=== PATIENT | female | born 1970 | race Asian ===

== ENCOUNTER 2016-07-18 02:27 | Outpatient (CLI) | payer OTHER ==
[2016-07-18] MEDS ORDERED: LEXAPRO10 MG PO (02:47)
== END 2016-07-18 02:41 | disposition short-term general hospital (02) ==
LOC: AMB 02:27
DX: R41.82 Altered mental status, unspecified (principal); F22 Delusional disorders
CPT/HCPCS: A0425; A0427

== ENCOUNTER 2016-07-18 02:45 | Emergency (ER) | payer OTHER ==
[~2016-07-18] VITALS: Ht 152.4 cm; Wt 49.9 kg
[2016-07-18] MEDS ORDERED: LEXAPRO10 MG PO (02:47)
[2016-07-18 03:23] LABS: PLATELET COUNT 267 K/uL (152-353)
[2016-07-18 03:34] LABS: POTASSIUM 2.9 mmol/L (3.6-5.2); SODIUM 135 mmol/L (136-145)
[2016-07-18 04:35] VITALS: BP 128/87; TEMP 99.8
== END 2016-07-18 04:35 | disposition home or self-care (01) ==
LOC: ED 02:45
DX: F20.89 Other schizophrenia (principal)
CPT/HCPCS: 36415; 80053; 80320; 80329; 85027; 99283

== ENCOUNTER 2016-07-19 17:43 | Emergency (ER) | payer OTHER ==
[~2016-07-19] VITALS: Ht 167.6 cm; Wt 56.2 kg
[~2016-07-19 17:43] MED LIST: LEXAPRO10 MG PO
[2016-07-19 18:29] LABS: PLATELET COUNT 297 K/uL (152-353)
[2016-07-19 19:02] LABS: POTASSIUM 3.4 mmol/L (3.6-5.2)
[2016-07-20 05:36] VITALS: TEMP 98.7
[2016-07-20 19:23] VITALS: BP 130/82
== END 2016-07-20 19:24 | disposition other institution (70) ==
LOC: ED 17:43
DX: R44.0 Auditory hallucinations (principal); F20.89 Other schizophrenia
CPT/HCPCS: 36415; 80053; 80307; 80320; 80329; 81000; 81025; 85027; 93005; 99285; G0479

== ENCOUNTER 2017-03-07 19:22 | Emergency (ER) | payer OTHER ==
[~2017-03-07] VITALS: Ht 152.4 cm; Wt 66.2 kg
[2017-03-07 20:08] VITALS: BP 143/87; TEMP 97.8
== END 2017-03-07 21:18 | disposition home or self-care (01) ==
LOC: ED 19:22
DX: M79.1 Myalgia (principal); M79.605 Pain in left leg
CPT/HCPCS: 99281

== ENCOUNTER 2017-03-09 09:56 | Outpatient (CLI) | payer OTHER | END 2017-03-09 22:32 | disposition home or self-care (01) | LOC: RAD 09:56 | DX: M54.16 Radiculopathy, lumbar region (principal) ==

== ENCOUNTER 2017-07-07 02:49 | Emergency (ER) | payer OTHER ==
[~2017-07-07] VITALS: Ht 165.1 cm; Wt 68.0 kg
[2017-07-07 04:30] LABS: PLATELET COUNT 303 K/uL (152-353)
[2017-07-07 04:33] LABS: POTASSIUM 3.3 mmol/L (3.6-5.2)
[2017-07-07 08:00] VITALS: BP 118/72; TEMP 98
== END 2017-07-07 08:00 | disposition home or self-care (01) ==
LOC: ED 02:49
PROVIDERS: Specialist
DX: F31.89 Other bipolar disorder (principal)
CPT/HCPCS: 80053; 80307; 80320; 81000; 83735; 84100; 84443; 85027; 87086; 87088; 93005; 99284; J1630

== ENCOUNTER 2017-09-06 10:11 | Outpatient (CLI) | payer OTHER | END 2017-09-06 23:56 | disposition home or self-care (01) | LOC: RAD 10:11 | DX: Z01.818 Encounter for other preprocedural examination (principal) ==

== ENCOUNTER 2018-01-15 13:01 | Outpatient (CLI) | payer OTHER ==
[2018-01-15 14:12] LABS: PLATELET COUNT 252 K/uL (152-353)
[2018-01-15 14:13] LABS: POTASSIUM 3.8 mmol/L (3.6-5.2)
== END 2018-01-15 19:25 | disposition home or self-care (01) ==
LOC: LABW 13:01
PROVIDERS: Podiatrist
DX: Z01.811 Encounter for preprocedural respiratory examination (principal); Z01.810 Encounter for preprocedural cardiovascular examination; Z01.812 Encounter for preprocedural laboratory examination
CPT/HCPCS: 36415; 80053; 80323; 85027; 93005

== ENCOUNTER 2019-04-02 10:56 | Outpatient (CLI) | payer OTHER | END 2019-04-02 20:10 | disposition home or self-care (01) | LOC: RAD 10:56 | DX: M54.16 Radiculopathy, lumbar region (principal) ==

== ENCOUNTER 2019-04-12 13:06 | Outpatient (CLI) | payer OTHER | END 2019-04-12 19:40 | disposition home or self-care (01) | LOC: RAD 13:06 → MRI 13:06 → RAD 19:40 | DX: M54.16 Radiculopathy, lumbar region (principal); M54.5 Low back pain; M16.12 Unilateral primary osteoarthritis, left hip; M47.816 Spondylosis without myelopathy or radiculopathy, lumbar region ==

== ENCOUNTER 2019-05-21 09:11 | Day surgery (SDC) | payer OTHER | END 2019-05-21 11:30 | disposition home or self-care (01) | LOC: OR 09:11 | PROC: 3E0R33Z Introduction of Anti-inflammatory into Spinal Canal, Percutaneous Approach (ICD-10-PCS; principal; 2019-05-21) | PROC: B01BYZZ Fluoroscopy of Spinal Cord using Other Contrast (ICD-10-PCS; 2019-05-21) | DX: M51.16 Intervertebral disc disorders with radiculopathy, lumbar region (principal) | CPT/HCPCS: J1100; Q9966 ==

== ENCOUNTER 2019-09-03 07:39 | Day surgery (SDC) | payer OTHER | END 2019-09-03 09:22 | disposition home or self-care (01) | LOC: OR 07:39 | PROC: 3E0R33Z Introduction of Anti-inflammatory into Spinal Canal, Percutaneous Approach (ICD-10-PCS; principal; 2019-09-03) | DX: M51.16 Intervertebral disc disorders with radiculopathy, lumbar region (principal) | CPT/HCPCS: Q9966 ==

== ENCOUNTER 2019-09-24 07:30 | Day surgery (SDC) | payer OTHER | END 2019-09-24 14:00 | disposition home or self-care (01) | LOC: OR 07:30 → EDSTATUS 09-27 15:53 | DX: Z53.8 Procedure and treatment not carried out for other reasons (principal); M51.16 Intervertebral disc disorders with radiculopathy, lumbar region; M48.061 Spinal stenosis, lumbar region without neurogenic claudication ==

== ENCOUNTER 2019-10-08 07:48 | Day surgery (SDC) | payer OTHER ==
[2019-10-08 08:56] LABS: POTASSIUM 3.7 mmol/L (3.6-5.2)
[2019-10-08 09:12] LABS: PLATELET COUNT 312 K/uL (152-353)
== END 2019-10-08 11:20 | disposition home or self-care (01) ==
LOC: OR 07:48
PROVIDERS: Pain Medicine Interventional Pain Medicine
PROC: 3E0R33Z Introduction of Anti-inflammatory into Spinal Canal, Percutaneous Approach (ICD-10-PCS; principal; 2019-10-08)
DX: M51.16 Intervertebral disc disorders with radiculopathy, lumbar region (principal)
CPT/HCPCS: 80053; 85027; J1100; J2250; J2704; J3010; J3490

== ENCOUNTER 2019-10-29 14:17 | Outpatient (CLI) | payer OTHER | END 2019-10-29 19:42 | disposition home or self-care (01) | LOC: RAD 14:17 | DX: M25.552 Pain in left hip (principal) ==

== ENCOUNTER 2020-08-31 08:45 | Outpatient (CLI) | payer OTHER | END 2020-08-31 12:00 | disposition home or self-care (01) | LOC: MRI 08:45 | PROVIDERS: ATTEND Neurological Surgery | DX: M54.16 Radiculopathy, lumbar region (principal) ==

== ENCOUNTER 2020-09-21 07:22 | Outpatient (CLI) | payer OTHER | END 2020-09-21 21:17 | disposition home or self-care (01) | LOC: US 07:22 | PROVIDERS: ATTEND Nurse Practitioner Family | DX: R94.5 Abnormal results of liver function studies (principal) ==

== ENCOUNTER 2021-04-28 10:57 | Outpatient (CLI) | payer OTHER | END 2021-04-28 19:04 | disposition home or self-care (01) | LOC: RAD 10:57 | PROVIDERS: ATTEND Internal Medicine | DX: M79.601 Pain in right arm (principal); M54.50 Low back pain, unspecified; V89.2XXA Person injured in unspecified motor-vehicle accident, traffic, initial encounter; Y92.9 Unspecified place or not applicable ==

== ENCOUNTER 2021-09-01 10:32 | Outpatient (CLI) | payer OTHER | END 2021-09-01 19:22 | disposition home or self-care (01) | LOC: RAD 10:32 | PROVIDERS: ATTEND Internal Medicine | DX: M79.601 Pain in right arm (principal) ==

== ENCOUNTER 2021-11-02 09:06 | Outpatient (CLI) | payer OTHER | END 2021-11-02 18:58 | disposition home or self-care (01) | LOC: CT 09:06 | PROVIDERS: ATTEND Internal Medicine | DX: N94.89 Other specified conditions associated with female genital organs and menstrual cycle (principal); Z12.31 Encounter for screening mammogram for malignant neoplasm of breast; M25.511 Pain in right shoulder ==

== ENCOUNTER 2022-02-23 08:15 | Outpatient (CLI) | payer OTHER | END 2022-02-23 19:01 | disposition home or self-care (01) | LOC: LABW 08:15 | PROVIDERS: ATTEND Nurse Practitioner Family | DX: R25.2 Cramp and spasm (principal) | CPT/HCPCS: 36415; 83735 ==

== ENCOUNTER 2022-02-25 08:15 | Outpatient (CLI) | payer OTHER | END 2022-02-25 18:55 | disposition home or self-care (01) | LOC: LABW 08:15 | PROVIDERS: ATTEND Nurse Practitioner Family | DX: R25.2 Cramp and spasm (principal) | CPT/HCPCS: 36415; 84132 ==

== ENCOUNTER 2022-03-28 14:02 | Emergency (ER) | payer OTHER ==
[~2022-03-28] VITALS: Ht 167.6 cm; Wt 66.2 kg
[2022-03-28 14:02] VITALS: TEMP 98
[2022-03-28 15:12] LABS: PLATELET COUNT 350 K/uL (152-353)
[2022-03-28 15:22] LABS: POTASSIUM 3.7 mmol/L (3.6-5.2)
[2022-03-28 15:25] LABS: PARTIAL THROMBOPLASTIN TIME 37.2 SECONDS (24.5-33.6)
[2022-03-28 18:10] VITALS: BP 172/98
== END 2022-03-28 18:15 | disposition short-term general hospital (02) ==
LOC: ED 14:02
PROVIDERS: Emergency Medicine Emergency Medical Services
PROC: 0T9B70Z Drainage of Bladder with Drainage Device, Via Natural or Artificial Opening (ICD-10-PCS; principal; 2022-03-28)
DX: R41.82 Altered mental status, unspecified (principal)
CPT/HCPCS: 36600; 51702; 80053; 80307; 80320; 81002; 82805; 82948; 83735; 83880; 84484; 85027; 85610; 85730; 93005; 96360; 96361; 96374; 99284; J2310

== ENCOUNTER 2022-05-27 08:23 | Outpatient (CLI) | payer OTHER | END 2022-05-27 19:07 | disposition home or self-care (01) | LOC: MRI 08:23 | PROVIDERS: ATTEND Nurse Practitioner Family | DX: M54.59 Other low back pain (principal) ==

== ENCOUNTER 2022-07-18 09:45 | Emergency (ER) | payer OTHER ==
[~2022-07-18] VITALS: Ht 167.6 cm; Wt 77.1 kg
[2022-07-18 10:14] VITALS: BP 114/76; TEMP 97.8
[2022-07-18 10:56] LABS: PLATELET COUNT 269 K/uL (152-353)
[2022-07-18 11:03] LABS: POTASSIUM 4.1 mmol/L (3.6-5.2)
== END 2022-07-18 12:27 | disposition home or self-care (01) ==
LOC: ED 09:45
PROVIDERS: Emergency Medicine Emergency Medical Services
DX: M25.59 Pain in other specified joint (principal)
CPT/HCPCS: 36415; 80048; 80307; 81002; 83735; 85027; 96361; 96374; 96375; 99284; J1885; J2930

== ENCOUNTER 2022-08-05 08:39 | Emergency (ER) | payer OTHER ==
[~2022-08-05] VITALS: Ht 167.6 cm; Wt 77.1 kg
[2022-08-05 08:52] VITALS: BP 161/99; TEMP 99
== END 2022-08-05 09:29 | disposition home or self-care (01) ==
LOC: ED 08:39
DX: J02.9 Acute pharyngitis, unspecified (principal)
CPT/HCPCS: 99282

== ENCOUNTER 2022-10-03 08:19 | Emergency (ER) | payer OTHER ==
[~2022-10-03] VITALS: Ht 167.6 cm; Wt 77.1 kg
[2022-10-03 08:37] VITALS: TEMP 99.7
[2022-10-03 09:30] LABS: PLATELET COUNT 297 K/uL (152-353)
[2022-10-03 09:35] LABS: POTASSIUM 3.7 mmol/L (3.6-5.2)
[2022-10-03 09:45] LABS: PARTIAL THROMBOPLASTIN TIME 27.5 SECONDS (23.9-36.7)
[2022-10-03 13:36] VITALS: BP 143/98
== END 2022-10-03 13:36 | disposition home or self-care (01) ==
LOC: ED 08:19
PROVIDERS: Family Medicine
DX: R60.9 Edema, unspecified (principal); F10.10 Alcohol abuse, uncomplicated; F17.210 Nicotine dependence, cigarettes, uncomplicated
CPT/HCPCS: 36415; 80053; 81002; 83605; 83735; 83880; 84484; 85027; 85610; 85730; 87502; 87635; 93005; 94664; 96374; 96375; 99283; 99284; J1100; J1940; J3475; U0003

== ENCOUNTER 2022-12-18 15:34 | Observation (INO) | payer OTHER ==
[~2022-12-18] VITALS: Ht 152.4 cm; Wt 77.1 kg
[2022-12-18 16:03] VITALS: BP 116/91; TEMP 97.7
[2022-12-18 16:33] LABS: PLATELET COUNT 428 K/uL (152-353)
[2022-12-18 17:45] LABS: POTASSIUM 3.6 mmol/L (3.6-5.2); SODIUM 141 mmol/L (136-145)
[2022-12-18 20:00] VITALS: BP 125/78; TEMP 97.5
[2022-12-19] VITALS (7 sets, daily range): BP systolic 108–149; BP diastolic 78–92; TEMP 97.5–99.6; Ht 152.4 cm; Wt 77.1 kg
[2022-12-19 04:45] LABS: PLATELET COUNT 366 K/uL (152-353)
[2022-12-19 05:45] LABS: SODIUM 144 mmol/L (136-145)
[2022-12-19] MEDS ORDERED: ZYPREXA ZYDI10 MG PO (12:30)
[2022-12-19] MEDS ORDERED: TRAZ100T PO (12:30)
[2022-12-19] MEDS ORDERED: FURO40TA93 PO (12:31)
[2022-12-19] MEDS ORDERED: AMLODIPINE BESYLATE PO (12:31)
[2022-12-19] MEDS ORDERED: PAROXETINE10 MG PO (12:32)
[2022-12-19] MEDS ORDERED: HYDROCHLOROTHIAZIDE PO (12:32)
[2022-12-19] MEDS ORDERED: OMEP20CA PO (12:33)
[2022-12-19] MEDS ORDERED: NAPROXEN EC500 MG PO (12:33)
[2022-12-19] MEDS ORDERED: AMITRIPTYLINE H50 MG PO (12:34)
[2022-12-19] MEDS ORDERED: ACET-689 PO (12:34)
[2022-12-19] MEDS ORDERED: NORCO PO (12:35)
== END 2022-12-19 21:10 | disposition short-term general hospital (02) ==
LOC: ED 15:34 → MED/SURG 17:49
PROVIDERS: Family Medicine; ADMIT Nurse Practitioner Family; ATTEND Internal Medicine
DX: R10.9 Unspecified abdominal pain (principal); R11.2 Nausea with vomiting, unspecified; E83.42 Hypomagnesemia; F20.9 Schizophrenia, unspecified; I10 Essential (primary) hypertension; M54.89 Other dorsalgia; F14.11 Cocaine abuse, in remission; F10.90 Alcohol use, unspecified, uncomplicated; Z72.0 Tobacco use; K21.9 Gastro-esophageal reflux disease without esophagitis; K56.609 Unspecified intestinal obstruction, unspecified as to partial versus complete obstruction
CPT/HCPCS: 36415; 80053; 80307; 81002; 82150; 83690; 83735; 84100; 84484; 85027; 93005; 96360; 96361; 96365; 96372; 96375; 96376; 99221; 99284; G0378; J2270; J2405; J2550; J3475; J3490